=== PATIENT | female | born 1980 | race Caucasian/White ===

== ENCOUNTER → 2016-08-26 | Outpatient (CLI) | payer MEDICAID ==
--- NOTE | 2016-08-26 17:48 | US ---
EXAMINATION TYPE: US OB <=14 wks transvag DATE OF EXAM: 08/26/2016 5:29 PM COMPARISON: NONE CLINICAL HISTORY: Bleeding x 1 day in early OB. EXAM PERFORMED: TA and TV EXAM MEASUREMENTS: GESTATIONAL AGE / DATING Physician Established: not established Dates by LMP: (7 weeks/1 days) EDC: 04/13/2017 Dates by First Scan: COMMUNITY RELATIONS REPRESENTATIVE Dates by Current Scan: N/A, dates of gestational sac = OOR MATERNAL ANATOMY Uterus: 9.0 x 5.4 x 4.5cm Right Ovary: 2.1 x 1.5 x 1.4cm Left Ovary: not seen - overlying bowel gas Post CDS / Adnexa: wnl Presence of free fluid: no Presence of corpus luteal cyst: no Presence of subchorionic bleed: no GESTATION / SURVEY CRL: not seen MSD: 0.9cm = out of range Yolk Sac (normal less than 6mm): 0.2cm IUP: yes Date of LMP: 07/07/2016 Beta HcG (if available): not available TECHNOLOGIST IMPRESSION: Early Ob versus other etiology IMPRESSION: There is a small intrauterine gestational sac with a yolk sac. The size corresponds to less than 6 we eks. There are no adnexal masses. Follow-up is recommended in 14 days to confirm a living fetus if clinically indicated. No evidence of ectopic .
== END | disposition home or self-care (01) ==
LOC: RADUSMAIN 16:53
PROVIDERS: ATTEND Obstetrics & Gynecology
DX: O46.91 Antepartum hemorrhage, unspecified, first trimester (principal); Z3A.01 Less than 8 weeks gestation of pregnancy
CPT/HCPCS: 76801; 76817

== ENCOUNTER → 2016-08-27 | Outpatient (CLI) | payer MEDICAID | END | disposition home or self-care (01) | LOC: LABWHC1 12:06 | PROVIDERS: ATTEND Obstetrics & Gynecology | DX: Z34.90 Encounter for supervision of normal pregnancy, unspecified, unspecified trimester (principal); Z3A.00 Weeks of gestation of pregnancy not specified | CPT/HCPCS: 36415; 84702 ==

== ENCOUNTER → 2016-08-31 | Outpatient (CLI) | payer MEDICAID ==
[2016-08-31 17:33] LABS: CH 30.5; CHCM 34.1; HDW 2.65; HGB 13.9 gm/dL (11.4-16.0); MCH 29.7 pg (25.0-35.0); MCHC 33.1 g/dL (31.0-37.0); MCV 89.8 fL (80.0-100.0); Mean Platelet Volume 7.5; RBC 4.67 m/uL (3.80-5.40); RDW 13.4 % (11.5-15.5); WBC 9.9 k/uL (3.8-10.6)
== END | disposition home or self-care (01) ==
LOC: LABWHC1 17:14
PROVIDERS: ATTEND Obstetrics & Gynecology
DX: O03.9 Complete or unspecified spontaneous abortion without complication (principal); O26.819 Pregnancy related exhaustion and fatigue, unspecified trimester; Z3A.00 Weeks of gestation of pregnancy not specified
CPT/HCPCS: 36415; 84702; 85027

== ENCOUNTER → 2016-11-29 | Outpatient (CLI) | payer MEDICAID ==
--- NOTE | 2016-11-29 22:44 | XR ---
EXAMINATION TYPE: XR chest 2V DATE OF EXAM: 11/29/2016 6:21 PM COMPARISON: 05/16/2016 HISTORY: 35-year-old female with cough TECHNIQUE: Frontal and lateral views FINDINGS: The cardiomediastinal silhouette, aorta, and pulmonary vasculature are within normal limits. Lungs an d pleural spaces are clear. IMPRESSION: No acute cardiopulmonary process.
== END ==
LOC: RADXRMAIN 17:39
PROVIDERS: ATTEND Family Medicine
DX: R05 Cough (principal)
CPT/HCPCS: 71020

== ENCOUNTER → 2023-05-29 | Outpatient (CLI) | payer BC ==
[2023-05-29 17:02] LABS: African American GFR (CKD) >90 (>60 ml/min/1.73 sqM); Blood Urea Nitrogen 22 mg/dL (7-17); Non-African American GFR(CKD) >90 (>60 ml/min/1.73 sqM)
--- NOTE | 2023-05-30 08:58 | CT ---
EXAMINATION TYPE: CT foot RT w con DATE OF EXAM: 05/29/2023 COMPARISON: None HISTORY: stress fx of right foot pain base of fourth metatarsal. CT DLP: 626.6 mGycm Automated exposure control for dose reduction was used. CONTRAST: Performed without and with IV Contrast, patient injected with 100 cc mL of Isovue 300. FINDINGS: There is mild subcutaneous know sizable hematoma. No abnormal enhancement. There is no evidence of acute fracture or dislocation. No abnormal sclerosis involving the base fourt h metatarsal to suggest stress injury as no unusual cortical thickening. No erosive changes are seen. Joint spaces are fairly well-maintained. Tiny calcaneal spur at the Achilles insertion. IMPRESSION: 1. No acute fracture or dislocation. If symptoms persist consider MRI follow-up which would be more s ensitive in detecting bone marrow edema.
== END | disposition home or self-care (01) ==
LOC: RADCTMAIN 15:43
PROVIDERS: ATTEND Podiatrist Foot & Ankle Surgery
DX: M84.374A Stress fracture, right foot, initial encounter for fracture (principal)
CPT/HCPCS: 82565; 84520; 36415; 73701; Q9967

== ENCOUNTER → 2025-01-07 | Outpatient (CLI) | payer BC ==
[2025-01-07 15:20] VITALS: BP 158/94; PULSE 102; RESP 12; TEMP 98.7
--- NOTE | 2025-01-07 15:48 | P.SLEEP ---
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 The patient is suffering from loud snoring and it same time she is having increased daytime fatigue and sleepiness. In addition, her blood pressure today was noted to be elevated. Typically, she does not have any blood pressure. She admits to be fatigued and tired during the day without being impaired and her functionality at work remains adequate. She has an Viola score of 11. She has gained weight over the years and her snoring has gotten worse. Over the past 5 years, the patient has gained around 15 to 20 pounds. She hears herself snore. She denies having any gasping for air. Denies waking up choking or gasping. No restlessness in lower extremities. No sleepwalking or sleep talking. During the day, she is feeling tired and she wakes up tired. She has a dry mouth when she wakes up in the morning. She is a mouth breather. No excessive utilization of alcoholic beverages. No caffeine intake. No substance abuse. No other major comorbidities. She has some sinus allergies for which she takes Zyrtec. Does not take any naps during the day. Does not fall asleep while driving. No history of any motor vehicle accidents because of feeling drowsy or sleepy. No sleep paralysis or hallucinations or cataplexy. The patient has no difficulties in sleep induction. She goes to bed at around 11 PM, wakes up 6 AM in the morning and the patient is averaging around 6 to 7 hours of sleep. Review of Systems Constitutional: Reports daytime sleepiness, Reports fatigue, Reports weight gain Eyes: denies as per HPI, denies blurred vision, denies bulging eye, denies decreased vision, denies diplopia, denies discharge, denies dry eye, denies irritation, denies itching, denies pain, denies photophobia, denies loss of peripheral vision, denies loss of vision, denies tunnel vision/blind spots Ears: deny: decreased hearing, ear discharge, earache, tinnitus Ears, nose, mouth and throat: Reports as per HPI Breasts: absent: as per HPI, change in shape, gynecomastia, masses, nipple discharge, pain, skin changes, swelling Cardiovascular: Reports as per HPI Respiratory: Reports snoring Gastrointestinal: Reports as per HPI Genitourinary: Reports as per HPI Menstruation: Reports as per HPI Musculoskeletal: Reports as per HPI Musculoskeletal: absent: ankle pain, ankle stiffness, ankle swelling, as per HPI, elbow pain, elbow stiffness, elbow swelling, foot pain, foot stiffness, foot swelling, hand pain, hand stiffness, hand swelling, hip pain, hip sti ffness, hip swelling, knee pain, knee stiffness, knee swelling, shoulder pain, shoulder stiffness, shoulder swelling, wrist pain, wrist stiffness, wrist swelling Integumentary: Reports as per HPI Neurological: Reports as per HPI Psychiatric: Reports change in sleep habits, Reports hypersomnia Endocrine: Reports as per HPI, Reports fatigue Hematologic/Lymphatic: Reports as per HPI Allergic/Immunologic: Reports as per HPI Past Medical History Past Medical History: No Reported History History of Any Multi-Drug Resistant Organisms: None Reported Past Surgical History: Orthopedic Surgery Additional Past Surgical History / Comment(s): LEFT KNEE, 2 C-SECTIONS Past Anesthesia/Blood Transfusion Reactions: Motion Sickness Past Psychological History: No Psychological Hx Reported Smoking Status: Never smoker Past Alcohol Use History: Occasional Past Drug Use History: None Reported Medications and Allergies Home Medications Medication Instructions Recorded Confirmed Type Cetirizine HCl [Zyrtec] 10 mg PO DAILY 01/07/25 01/07/25 History Cholecalciferol [Vitamin D3 (125 125 mcg PO DAILY 01/07/25 01/07/25 History Mcg = 5000 Iu)] Allergies Allergy/AdvReac Type Severity Reaction Status Date / Time latex AdvReac Rash/Hives Unverified 01/07/25 15:21 sulfamethoxazole AdvReac Rash/Hives Unverified 01/07/25 15:21 [From Bactrim] trimethoprim [From Bactrim] AdvReac Rash/Hives Unverified 01/07/25 15:21 Physical Exam Vitals: Vital Signs Temp Pulse Resp BP Pulse Ox 01/07/25 15:19 98.7 F 102 H 12 158/94 99 Intake and Output 01/07/25 01/07/25 01/07/25 06:59 14:59 22:59 Other: Weight 95.254 kg The patient appeared well nourished and normally developed. Vital signs as documented. The patient has a body mass index of 38.4. Her current weight is 210 pounds. Neck size is 15 inches Head exam is unremarkable. No scleral icterus or corneal arcus noted. Neck is without jugular venous distension, thyromegaly, or carotid bruits. Carotid upstrokes are brisk bilaterally. The patient has a Mallampati class IV Lungs are clear to auscultation and percussion. Cardiac exam reveals the PMI to be normally sized and situated. Rhythm is regular. First and second heart sounds normal. No murmurs, rubs or gallops. Abdominal exam reveals normal bowel sounds, no masses, no organomegaly and no aortic enlargement. Extremities are nonedematous and both femoral and pedal pulses are normal. Examination of the skin revealed no evidence of significant rashes, suspicious appearing nevi or other concerning lesions. Neurologically, the patient is awake and alert and the patient does not have any focal neurological deficit. Cranial nerves are essentially intact. Assessment and Plan Plan: Loud snoring Chronic fatigue and sleepiness with an Viola score of 11 Mallampati class IV with crowding of the posterior pharynx Obesity with a BMI of 38.4 Environmental allergies, on Zyrtec Elevated blood pressure without clear history of hypertension. It was noted nilda t the patient's blood pressure today is 158/94 and this is something to be monitored on an outpatient basis. Plan Recommend weight loss Maintain regular sleep schedule Maintain good sleep hygiene measures Proceed with a home sleep study to investigate the patient for obstructive sleep apnea and will come up with a treatment plan accordingly. Sleep Note - Sleep Data ESS Total: 11 - Sleep Note Sleep Note: Temperature: 98.7 F Pulse Rate: 102 Respiratory Rate: 12 Blood Pressure: 158/94 SpO2: 99 Height: 5 ft 2 in Weight: 95.254 kg BMI: Neck Circumference: 15
== END ==
LOC: 3 N SLEEP 14:20
PROVIDERS: ATTEND Internal Medicine Critical Care Medicine
DX: R06.83 Snoring (principal); R53.83 Other fatigue; E66.9 Obesity, unspecified; J30.2 Other seasonal allergic rhinitis; I10 Essential (primary) hypertension; Z68.38 Body mass index [BMI] 38.0-38.9, adult; Z91.040 Latex allergy status; Z88.2 Allergy status to sulfonamides; Z88.1 Allergy status to other antibiotic agents; Z79.899 Other long term (current) drug therapy
CPT/HCPCS: 99202

== ENCOUNTER → 2025-01-27 | Outpatient (CLI) | payer BC ==
--- NOTE | 2025-02-03 22:23 | P.PCN ---
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 The patient is suffering from loud snoring and it same time she is having increased daytime fatigue and sleepiness. In addition, her blood pressure today was noted to be elevated. Typically, she does not have any blood pressure. She admits to be fatigued and tired during the day without being impaired and her functionality at work remains adequate. She has an Axson score of 11. She has gained weight over the years and her snoring has gotten worse. Over the past 5 years, the patient has gained around 15 to 20 pounds. She hears herself snore. She denies having any gasping for air. Denies waking up choking or gasping. No restlessness in lower extremities. No sleepwalking or sleep talking. During the day, she is feeling tired and she wakes up tired. She has a dry mouth when she wakes up in the morning. She is a mouth breather. No excessive utilization of alcoholic beverages. No caffeine intake. No substance abuse. No other major comorbidities. She has some sinus allergies for which she takes Zyrtec. Does not take any naps during the day. Does not fall asleep while driving. No history of any motor vehicle accidents because of feeling drowsy or sleepy. No sleep paralysis or hallucinations or cataplexy. The patient has no difficulties in sleep induction. She goes to bed at around 11 PM, wakes up 6 AM in the morning and the patient is averaging around 6 to 7 hours of sleep. Physical findings Body mass index is 38.4. Weight is 210 pounds Technical description The [employer] system was used to complete his home sleep study. This is a type III home sleep study evaluation. Total recording duration was 8 hours and 48 minutes. The study started 10:30 PM and ended at 7:19 AM. There was a total of 8 hours and 20 minutes of flow monitoring and 8 hours and 26 minutes of oxygen saturation monitoring Results Respiratory analysis showed a total of 75 obstructive apneas and a total of 148 obstructive hypopneas. The resulting AHI was 26.7, consistent with moderately severe disease. AHI in the supine body position was 31.2. Oxygenation analysis The patient had a baseline pulse ox of 98% on room air oxygen. Average pulse ox during sleep was 95% and the minimum pulse ox was 71%. This patient spent approximately 90 minutes of the sleep time below pulse ox of 89%. Cardiac summary Average heart rate was 61 with a minimum heart rate of 47 and a maximal heart rate of 85 Assessment Obstructive sleep apnea, moderately severe with an AHI of 26.7, worse in the sup ine body position. Mild nocturnal oxygen desaturation with a minimum pulse ox of 71% Loud snoring with secondary obstructive sleep apnea Chronic fatigue and sleepiness with an Axson score of 11 Mallampati class IV with crowding of the posterior pharynx Obesity with a BMI of 38.4 Environmental allergies, on Zyrtec Hypertension Plan Recommend weight loss Maintain regular sleep schedule Maintain good sleep hygiene measures The patient has obstructive sleep apnea. Disease severity is moderate to severe based on body positioning. Recommend CPAP therapy. The patient will be asked to come into the sleep center to undergo CPAP titration.
== END ==
LOC: 3 N SLEEP 11:10
PROVIDERS: ATTEND Internal Medicine Critical Care Medicine
DX: G47.33 Obstructive sleep apnea (adult) (pediatric) (principal); E66.9 Obesity, unspecified; I10 Essential (primary) hypertension; J30.89 Other allergic rhinitis; Z91.040 Latex allergy status; Z88.2 Allergy status to sulfonamides; Z88.1 Allergy status to other antibiotic agents; Z68.38 Body mass index [BMI] 38.0-38.9, adult